=== PATIENT | male | born 1975 | race Caucasian/White ===

== ENCOUNTER 2020-07-26 18:43 | Emergency (ER) | payer OTHER, MEDICAID, SELFPAY ==
[2020-07-26 19:16] VITALS: BP 137/104; PULSE 90; RESP 14; TEMP 36.7; O2SAT 99
--- NOTE | 2020-07-26 20:28 | ED_ITS ---
HPI - Recheck/Abnormal Lab/Rx General Chief Complaint: Recheck/Abnormal Lab/Rx Stated Complaint: HIGH BLOOD PRESSURE Time Seen by Provider: 07/26/20 18:54 Source: patient Mode of arrival: Ambulatory Limitations: no limitations History of Present Illness HPI narrative: 44-year-old male who is new to this area here for a refill of his losartan an escitalopram. He states that he has not been on these medications for the past 5 days. He stated that he ran out of his medications. He attempted to contact his old provider to refill them however was told that he needed to be seen before they could be refilled. He stated that he has had a pressure in his head since he stopped taking the medicine. He states this is what happens when his blood pressure becomes elevated. He attempted to contact primary providers here in the area however was told that he could not be seen until after October 29. Related Data Home Medications Medication Instructions Recorded Confirmed escitalopram oxalate 10 mg PO DAILY 07/26/20 07/26/20 losartan 25 mg PO DAILY 07/26/20 07/26/20 Previous Rx's Medication Instructions Recorded escitalopram oxalate 10 mg PO DAILY #30 tab 07/26/20 losartan 25 mg PO DAILY #30 tab 07/26/20 Allergies Allergy/AdvReac Type Severity Reaction Status Date / Time No Known Drug Allergies Allergy Verified 07/26/20 19:20 Review of Systems Constitutional Comments: Pressure in head Eyes Eyes: Denies change in vision ENT Ears, Nose, Mouth, and Throat: Denies vertigo Cardiovascular Cardiovascular: Denies chest pain and Denies dyspnea Respiratory Respiratory: Denies dyspnea Gastrointestinal Gastrointestinal: Denies abdominal pain Neurologic Neurologic: Denies confusion and Denies vertigo Psychiatric Psychiatric: Denies confusion Hematologic/Lymphatic Hematologic/Lymphatic: Denies easy bleeding and Denies easy bruising Allergic/Immunologic Allergic/Immunologic: Denies urticaria Patient History Medical History Anxiety about blushing (Acute) Hypertension (Acute) Social History Smoking Status: Current every day smoker Smoking Status: Current every day smoker alcohol intake frequency: 0-2 drinks per day Substance Use Type: does not use Exam Initial Vital Signs Initial Vital Signs: Vital Signs Temperature 98.0 F 07/26/20 19:16 Pulse Rate 90 07/26/20 19:16 Respiratory Rate 14 07/26/20 19:16 Blood Pressure 137/104 H 07/26/20 19:16 Pulse Oximetry 99 07/26/20 19:16 Const General: cooperative, healthy appearing, comfortable and well developed Limitations: mental status not altered HENMT Head: normal to inspection and normocephalic Resp Effort & Inspection: normal respiratory effort Cardio Rate: regular rate Neuro General: patient alert, patient awake and patient oriented x3 Cognition: normal cognition Speech: speech normal Motor: muscle tone normal throughout Extrem General: normal to inspection and No edema Psych Appearance: grossly normal and well kempt Course Orders Ordered: ED Orders 07/26/20 18:54 EKG-12 Lead Stat Vital Signs Vital signs: Vital Signs - 8 hr 07/26/20 19:16 07/26/20 20:33 07/26/20 20:40 Temperature 98.0 F Pulse Rate 90 84 85 Respiratory Rate 14 16 14 Blood Pressure 137/104 H 140/102 H 140/102 H Pulse Oximetry 99 98 99 MDM - Recheck/Abnormal Lab/Rx ECG Data Attestation: I personally reviewed and interpreted this ECG as follows: Prior ECG tracings: not available for review Interpretation: Sinus rhythm Ventricular rate 84 Normal axis Normal QRS Normal QTC No ST T wave changes MDM Narrative Medical decision making narrative: Refilled patient's medications. He was given phone number for the health resource was coordinator to help him establish a primary provider here in the area. He is given return precautions and follow-up instructions. Low suspicion for end-organ damage given his history and physical. Hold on further workup for now. Expressed understanding and agreement. Discharge Plan Departure Patient Disposition: Home Clinical Impression: Encounter for medication refill, Hypertension Discharge Date/Time: 07/26/20 20:40 Instructions: Essential Hypertension Activity Restrictions/Additional Instructions: Recommend that you contact the health water resource project manager here at the hospital at [phone]. This individual can help you with establishing a primary provider here in the area. Take the medications as directed. Return to the emergency department for any new or worsening symptoms. Prescriptions: New losartan 25 mg tablet 25 mg PO DAILY Qty: 30 RF: 3 escitalopram oxalate 10 mg tablet 10 mg PO DAILY Qty: 30 RF: 3 No Action losartan 25 mg Tablet 25 mg PO DAILY RF: 0 escitalopram oxalate 10 mg Tablet 10 mg PO DAILY RF: 0
[2020-07-26 20:33] VITALS: BP 140/102; PULSE 84; RESP 16; O2SAT 98
[2020-07-26 20:40] VITALS: BP 140/102; PULSE 85; RESP 14; O2SAT 99
== END 2020-07-26 20:40 | disposition home or self-care (01) ==
PROVIDERS: Emergency Provider Emergency Medicine
DX: I10 Essential (primary) hypertension (principal)
CPT/HCPCS: 36415; 93005; 99283

== ENCOUNTER → 2020-10-19 08:39 | Outpatient (CLI) | payer OTHER, SELFPAY ==
[2020-10-19 10:50] LABS: Hemoglobin A1C% w Est Avg Glu 5.8 % (4.0-6.0)
[2020-10-19 11:05] LABS: Alanine Aminotransferase 75 IU/L (<50); Albumin 4.2 g/dL (3.5-5.0); Albumin Globulin Ratio 1.4 (1.0-2.8); Alkaline Phosphatase 88 U/L (38-126); Aspartate Aminotransferase 44 IU/L (17-59); BUN Creatinine Ratio 21.5 (6-22); Bilirubin Total 0.4 mg/dL (0.2-1.3); Blood Urea Nitrogen 14 mg/dL (9-20); Calcium 9.3 mg/dL (8.4-10.2); Carbon Dioxide 23 mmol/L (22-32); Chloride 109 mmol/L (98-107); Cholesterol 188 mg/dL (140-199); Estimated Glomerular Filt Rate > 60.0 mL/min (>60); Globulin 2.9 g/dL (1.7-4.1); Glucose 108 mg/dL (70-100); HDL Cholesterol 49 mg/dL (40-60); HEMOLYSIS < 15 (0-50); LDL Cholesterol Calculated 112 mg/dL (<100); Potassium 4.6 mmol/L (3.4-5.1); Sodium 140 mmol/L (137-145); Total Protein 7.1 g/dL (6.3-8.2); Triglycerides 134 mg/dL (35-150)
[2020-10-19 11:35] LABS: TSH w/ Reflex to FT4 1.04 uIU/mL (0.47-4.68)
[2020-10-26 18:07] LABS: Creatinine Urine Random 162.3 mg/dL
[2020-10-26 18:34] LABS: Microalbumin Urine Random < 0.6 mg/dL (0-1.6)
== END ==
PROVIDERS: PCP Family Medicine; Referring Provider Family Medicine; Visit Provider Family Medicine
DX: Z00.01 Encounter for general adult medical examination with abnormal findings (principal); F41.9 Anxiety disorder, unspecified; I10 Essential (primary) hypertension
CPT/HCPCS: 36415; 80053; 80061; 82043; 82570; 83036; 84443